=== PATIENT | female | born 1950 | race Caucasian/White ===

== ENCOUNTER 2016-07-14 14:56 | Emergency (ER) | payer OTHER ==
[2016-07-14 14:17] LABS: BASOPHIL# 0.1 X10e3 (0-0.3); BASOPHIL% 0.6 % (0-2.5); EOSINOPHIL# 0.1 X10e3 (0-0.7); EOSINOPHIL% 0.9 % (0.0-7.0); HEMATOCRIT 38.2 % (35.0-45.0); HEMOGLOBIN 12.5 gm/dL (12.0-16.0); LYMPHOCYTE# 2.9 X10e3 (1.0-3.5); LYMPHOCYTE% 31.1 % (17.0-45.0); MEAN CELL VOLUME 97.9 FL (83-96); MEAN CORPUSCULAR HEMOGLOBIN 32.1 PG (28-34); MEAN CORPUSCULAR HGB CONC 32.8 g/dL (30-36); MEAN PLATELET VOLUME 9.4 FL (6.5-11.5); MONOCYTE# 0.8 X10e3 (0-1.0); NEUTROPHIL# 5.5 X10e3 (1.5-7.1); NEUTROPHIL% 58.4 % (40-75); PLATELET COUNT 231 X10e3 (140-420); RED CELL DISTRIBUTION WIDTH 13.8 % (11.0-15.5); WHITE BLOOD COUNT 9.3 X10e3 (4.0-10.5)
[2016-07-14 14:21] LABS: INR 1.2; PROTHROMBIN TIME (PATIENT) 12.6 SECONDS (9.6-11.5)
[2016-07-14 14:23] LABS: DIFF IND NO
[2016-07-14 14:24] LABS: PARTIAL THROMBOPLASTIN TIME 28.8 SECONDS (23.5-31.3)
[2016-07-14 14:30] LABS: ALBUMIN SERUM 4.2 g/dL (3.5-5.0); BILIRUBIN, DIRECT 0.1 mg/dL (0.0-0.2); BILIRUBIN,INDIRECT 0.4 mg/dL (0.0-0.9); BILIRUBIN,TOTAL 0.5 mg/dL (0.2-2.0); BUN/CREATININE RATIO 23.75; CREATININE SERUM 0.8 mg/dL (0.6-1.4); GLOM FILT RATE Estimated 76.9 mL/min (>60); POTASSIUM 4.1 mmol/L (3.5-5.1); PROTEIN TOTAL SERUM 7.7 g/dL (6.0-8.3)
[~2016-07-14 14:56] MED LIST: ACETAMINOPHEN PO; ACETAMINOPHEN325 MG PO; ACETAMINOPHEN650 M4 PO; ALBUTEROL17 GM INH; ALTACE PO; ASPIRIN PO; ASPIRIN81 MG PO; AZOR 5-20 MG T1 EACH PO; BAYER CHEWABLE81 MG PO; BENAZEPRIL PO; CARVEDILOL6.25 MG PO; COREG PO; COREG3.125 MG PO; COREG6.25 MG PO; COUMADIN; COUMADIN PO; COUMADIN5 MG PO; COUMADIN7.5 MG PO; DYAZIDE 37.5/251 CAP PO; FLUOXETINE HCL20 M1 PO; FUROSEMIDE40 MG PO; IMDUR-ER60 M1 PO; IMDUR-ER60 M2 PO; IMDUR-ER60 M3 PO; ISOSORBIDE MONO60 M1 PO; K-DUR10 MEQ PO; KCL PO; KLOR-CON PO; LASIX PO; LASIX20 MG PO; LEVAQUIN PO; LO-DOSE ASPIRIN81 M1 PO; LOTENSIN20 MG PO; LOVENOX SQ; LOVENOX SUBQ; LOVENOX30 MG/0.3 INJ; NICODERM C1 PATCH .4; NORVASC PO; PLAVIX PO; POTASSIUM CHLO10 ME1 PO; POTASSIUM CHLO10 MEQ PO; PROTONIX20 MG PO; SIMVASTATIN20 MG PO; SKELAXIN PO; TRAMADOL HCL50 M1 PO; VITAMIN D50000 UNIT PO; ZITHROMAX PO; ZOCOR PO; ZOCOR20 MG PO; [UNRECOGNIZED DRUG - REMARK]
== END 2016-07-14 16:13 | disposition home or self-care (01) ==
LOC: CED 14:56
PROVIDERS: Emergency Medicine
DX: K92.2 Gastrointestinal hemorrhage, unspecified (principal); I25.810 Atherosclerosis of coronary artery bypass graft(s) without angina pectoris; I10 Essential (primary) hypertension; D64.9 Anemia, unspecified; J44.9 Chronic obstructive pulmonary disease, unspecified; Z95.1 Presence of aortocoronary bypass graft; F17.200 Nicotine dependence, unspecified, uncomplicated; Z88.2 Allergy status to sulfonamides; Z88.5 Allergy status to narcotic agent; Z88.1 Allergy status to other antibiotic agents
CPT/HCPCS: 36415; 80048; 80076; 85025; 85610; 85730; 99283

== ENCOUNTER 2016-10-12 10:50 | Inpatient (IN) | payer OTHER ==
[~2016-10-12] VITALS: Ht 157.5 cm; Wt 41.0 kg
--- NOTE | ~2016-10-12 | HP ---
Unit #: [id number] #: [id number] Patient: SARAH WALLIS [id number] [address] [place], [place] [address] [id number] I MR#: [id number] NAME: SARAH WALLIS ROOM: 304 Age: 66 Sex: F Admission Date: 10/12/2016 : 1950 Attending Physician: Pat Ivan M.D. Primary Care Physician: Pat Ivan M.D. HISTORY AND PHYSICAL CHIEF COMPLAINT GI bleeding. HISTORY OF PRESENT ILLNESS Ms. Sarah Wallis is a 66-year-old female with multiple medical problems, is very well known to me from office setting and from hospitalization. She was doing well until Thursday. Thursday evening she started having some abdominal cramping. On Thursday, she started bleeding. She has had this kind of episode in the past. She thought this will pass but by Thursday it was getting worse and she was feeling lightheaded. She came to ER and was admitted for further workup. The patient has seen Dr. Hernandez in the past. She has had EGD and colonoscopy done in the past. Patient is still complaining of abdominal pain, level of 6 to 7 over 10. She would like some pain medications as she is NPO. She does not complain of vomiting. Does not complain of syncopal episode. She was feeling kind of nauseous and also lightheaded. She does not complain of chest pain. No complaint of shortness of breath. No compliant of shortness of breath. No complaint of palpitations. No complaint of orthopnea or paroxysmal nocturnal dyspnea. Please note, patient does have significant cardiac disease. She has had mechanical aortic valve and is on anticoagulation therapy which is on hold at this time. PAST MEDICAL HISTORY 1. History of coronary artery disease with previous myocardial infarction, status post CABG. 2. History of mechanical aortic valve replacement in 2002. 3. Hypertension. 4. Hyperlipidemia. 5. COPD. 6. Osteoarthritis. 7. Anemia. 8. History of GI bleed in the past. 9. Reformed tobacco abuse. PAST SURGICAL HISTORY Patient has had multiple surgeries includin. CABG x3. 2. Mechanical aortic valve replacement. 3. Cardiac catheterization and PCI in 2012. 4. Colonoscopy, October 2014. 5. EGD, multiple in the past. 6. Hysterectomy. 7. Splenectomy. 8. Appendectomy. Unit #: [id number] #: [id number] Patient: SARAH WALLIS 9. Cholecystectomy. 10. Cataract extraction. ALLERGIES Sulfa, codeine, prednisone, ampicillin, meropenem, meperidine, cefuroxime. SOCIAL HISTORY Patient lives at home. She is a reformed smoker. No history of alcohol abuse or drug abuse. FAMILY HISTORY Patient's brother of sudden cardiac . She does have family history of significant cardiac disease. HOME MEDICATIONS 1. Coumadin 5 mg daily. 2. Coreg 6.25 mg twice a day. 3. Simvastatin 20 mg daily. 4. Isosorbide 60 mg daily. 5. Potassium 10 mEq daily. 6. Lasix 20 mg daily. 7. Aspirin 81 mg daily. 8. Omeprazole 40 mg before breakfast. 9. Dulcolax 100 mg daily. 10. Loratadine 10 mg daily. 11. Patanol one drop each eye daily. REVIEW OF SYSTEMS As per history of presenting illness. No history of fever, chills, or rigors. No history of chest pain. No history of shortness of breath. No history of palpitations. No history of wheezing. No history of syncopal episodes. No major skin issues. No ear, nose, throat problems. Rest is as per history of presenting illness. PHYSICAL EXAMINATION GENERAL: The patient is lying comfortably in bed, does not seem to be in any respiratory distress. VITAL SIGNS: Blood pressure is 114/59, respiratory rate 18, pulse 51, temperature 97.7, oxygen saturation is 97%. HEENT: Head is normocephalic. Eye movements are normal. NECK: Supple. CHEST: Fair air entry. No additional sounds. CARDIOVASCULAR: S1, S2 positive. Prosthetic valve click is present. ABDOMEN: Soft. There is some tenderness in the upper abdomen. No rigidity or rebound. Bowel sounds are positive. EXTREMITIES: Negative edema. CENTRAL NERVOUS SYSTEM: The patient is awake, alert, oriented x3. No focal neurological deficit. DIAGNOSTIC STUDIES LABORATORY: WBC 10.2, hemoglobin 13.2, hematocrit 40.2, and platelet count of 230,000. PT/INR is 23.9 and 2.2. Sodium 138, potassium 3.9, chloride 103, BUN 17, creatinine 0.8. Liver enzymes are stable. IMAGING: CT scan of the abdomen and pelvis was done which shows no acute abnormalities are noted, moderately severe sigmoid and descending colonic diverticulosis and moderate volume stool throughout the colon. Unit #: [id number] #: [id number] Patient: SARAH WALLIS CT scan of the head without contrast is done. Negative head CT exam. ASSESSMENT Patient is being admitted to telemetry unit with: 1. Low gastrointestinal bleed. 2. Abdominal pain. 3. Status post mechanical aortic valve replacement, Coumadin on hold due to gastrointestinal bleed. 4. Coronary artery disease, status post coronary artery bypass grafting. 5. Chronic obstructive pulmonary disease. 6. Hypertension. 7. Hyperlipidemia. 8. Reformed smoker. PLAN 1. Admit to telemetry unit. 2. Dr. Recinos has been consulted. 3. Coumadin is on hold. 4. IV Protonix is being started. 5. Dr. Hernandez has been consulted. Plan of care has been discussed with patient at length. Please refer to progress note for further orders. Dictated by Ana Tatum TD: 10/13/2016 10:26 JOB #: [id number] HISTORY AND PHYSICAL Page 1 of 1 X Pat Ivan MD X HISTORY AND PHYSICAL
--- NOTE | ~2016-10-12 | CT71 ---
[facility] A Service of [facility] RADIOLOGY TEXT RESULTS PATIENT: SARAH WALILS LOCATION: [facility] 304-01 : [birth year] UNIT #: [id number] AGE: [address]: Pat Ivan MD SEX: F ORDER DR: [id number] [facility] [address] [facility]. [place], [place] [address] [id number] MR#: [id number] Acc #: [id number] NAME: SARAH WALLIS : 1950 SEX: F STUDY DATE/TIME: 10/12/2016 13:01 UNIT: A [facility] ROOM: [facility] STUDY DESCRIPTION: CT Head Wo Contrast Attending Physician: Pat Ivan M.D. Ordering Physician: Nura Pittman D.O. Primary Care Physician: Pat Ivan M.D. MEDICAL IMAGING REPORT This report is preliminary unless electronic signature is present EXAM CT head, noncontrast, 10/12/2016 HISTORY 66-year-old female complaining of 2-day history of severe headache (11/13). Dizziness. She also notes a 1-day history of rectal bleeding. TECHNIQUE CT examination of the head was performed without IV contrast. The CT exam was performed with one or more of the following radiation dose reduction techniques: automatic exposure control, adjustment of mA and/or kV according to patient size, and iterative reconstruction. FINDINGS The examination is negative. No evidence of intracranial hemorrhage, mass, mass effect, cerebral edema, hydrocephalus or additional abnormality. No significant change since 03/23/2016. IMPRESSION Negative head CT examination. No change since 03/23/2016. Dictated by... Meet Araujo M.D. THIS IS AN ELECTRONICALLY VERIFIED REPORT Meet Araujo M.D. at 10/14/2016 8:50 AM STEPHANIEW/mariela TD: 10/13/2016 09:04 JOB #: [id number] [facility] A Service of [facility] RADIOLOGY TEXT RESULTS PATIENT: SARAH WALLIS LOCATION: [facility] 304-01 : [birth year] UNIT #: [id number] AGE: [address]: Pat Ivan MD SEX: F ORDER DR: MEDICAL IMAGING REPORT Page 1 of 1 COPY
--- NOTE | ~2016-10-12 | EKG ---
PATIENT: SARAH WALLIS UNIT #: [id number] Ventricular Rate: 58 BPM Atrial Rate: 58 BPM P-R Interval: 136 ms QRS Duration: 88 ms Q-T Interval: 438 ms QTC Calculation(Bezet): 429 ms P [place]: 79 degrees Calculated R [place]: 77 degrees Calculated T [place]: 49 degrees Diagnosis Line: Sinus bradycardia Diagnosis Line: Otherwise normal ECG Diagnosis Line: Diagnosis Line: Confirmed by FILEMON MOODY MD ([id number]) on Diagnosis Line: 10/20/2016 12:14:52 PM INTERPRETING MD: QUIN
--- NOTE | ~2016-10-12 | DS ---
Unit #: [id number] #: [id number] Patient: SARAH WALLIS [id number] [address] [address] [id number] I MR#: [id number] NAME: SARAH WALLIS ROOM: 461 Age: 66 Sex: F Admission Date: 10/12/2016 : 1950 Discharge Date: 10/21/2016 Attending Physician: Pat Ivan M.D. Primary Care Physician: Pat Ivan M.D. DISCHARGE SUMMARY FINAL DIAGNOSES 1. Acute diverticular bleed. 2. Hypertension. 3. Mechanical aortic valve replacement. 4. History of coronary artery disease, status post coronary artery bypass graft. 5. History of percutaneous coronary intervention to proximal left circumflex. 6. Anticoagulation therapy with INR of 3.1 today. 7. On stress test in 2015, ejection fraction was 76%. 8. Anemia. 9. Hypertension. 10. Hyperlipidemia. 11. Hypotension at this time. DISCHARGE MEDICATIONS Tylenol 650 q.6h p.r.n., warfarin 5 mg daily, loratadine 10 mg daily p.r.n. Please note, carvedilol has been discontinued because of hypotension and bradycardia; Colace 100 mg daily; simvastatin 20 mg daily; ProAmatine 10 mg p.o. t.i.d.; Patanol drops for allergies; aspirin 81 mg daily; omeprazole daily; potassium 10 mEq daily; isosorbide mononitrate has been discontinued at this time per Cardiology. DIAGNOSTIC STUDIES LABORATORY RESULTS: On discharge, WBC 8.8, hemoglobin 10.5, hematocrit 31.9 and platelet count of 188. PT/INR is 33.3 and 3.1. Sodium 139, potassium 4.0, chloride 104, BUN 19, creatinine 0.8, calcium 8.5, troponin 0.03. IMAGING STUDIES: Radiological studies done during hospitalization; 1. CT scan of the abdomen and pelvis, which was done on admission showed no acute abnormalities. Moderate to severe sigmoid and descending colonic diverticulosis were seen. The patient has had splenectomy, cholecystectomy and hysterectomy. There is a stable benign 1.4 cm left adrenal nodule, unchanged from 08/2014, pulmonary emphysema was seen. 2. CT scan of the head without contrast was done on admission, which shows negative head CT scan. PROCEDURE PERFORMED DURING HOSPITALIZATION Colonoscopy to the cecum. This was done because of significant lower GI bleed and anemia secondary to acute GI bleed. The patient had colonoscopy done, which shows fresh blood seen some in entire colon. After extensive lavaging, no fresh bleeding was seen. No source of bleeding was Unit #: [id number] #: [id number] Patient: SARAH WALLIS identified. Moderate diverticulosis involving sigmoid colon. Small internal hemorrhoids were seen. This procedure was performed by Dr. Hernandez on 10/15/2016. CONSULTATION DURING HOSPITALIZATION 1. Dr. Recinos from Cardiology Services. 2. Dr. Hernandez from GI Services. HOSPITAL COURSE Ms. Saturnino Denise is a 66-year-old female who is very well known to me from multiple admissions, came with a GI bleed. The patient was admitted to telemetry unit and continued to observe closely. Dr. Hernandez was consulted and the patient had colonoscopy done, which is as above. Coumadin was held on admission and started on heparin drip as per Cardiology Services. The patient is doing well. After a few days, she did go to hypertension, was transferred to ICU and was on pressors for some time. The patient is being started on ProAmatine for hypertension. She is feeling much better and would like to go home. She is being discharged home at this time. EXAMINATION ON DISCHARGE VITAL SIGNS: Blood pressure is 147/49, respiratory rate 16, pulse is 52, temperature 97.9, oxygen saturation is 98%. HEENT: Head is normocephalic. CHEST: Fair air entry. CVS: Mechanical valve, click is heard. ABDOMEN: Soft. EXTREMITIES: Negative edema. DISCHARGE INSTRUCTIONS 1. The patient is being discharged home in stable condition. 2. Follow up primary care provider in 1 week. 3. CBC and BMP to be done in 1 week. 4. Follow up with Dr. Recinos on 12/04/2016 at 2:00 p.m. 5. PT/INR to be repeated in 2 to 3 days. 6. Follow up with Dr. Hernandez in 2 to 3 weeks. 7. Plan of care has been discussed with the patient. Dictated by... Ana Tatum/palomo TD: 10/25/2016 03:28 JOB #: [id number] DISCHARGE SUMMARY Page 1 of 1 X Pat Ivan MD DISCHARGE SUMMARY
--- NOTE | ~2016-10-12 | A ---
[facility] Nutrition Therapy DATE: 10/13/16 Patient: SARAH WALLIS Physician: BRIANA Address: [address] [place] [address] Room/Bed: [address] [place] [address], Zip: [place] [address] Admit Date: 10/12/16 Date of : [birth year] Height: 5 2 Weight: 92 41.9 NUTRITIONAL ASSESSMENT: REASON: LOW BMI 66 yo female admitted for GI bleed, abdominal pain PMH: CAD, COPD, [place], CABG, HTN, HLD, mechanical aortic valve placement, GI bleed, osteoarthritis, anemia Anthropometrics: Ht: 62" Wt: 41.9 kg BMI: 16.9 IBW: 50 kg, 84% IBW Labs: Nutritional labs WNL Meds: Protonix, lipitor, colace, furosemide, NaCl I/O & Bowel function: 177/, last BM 10/12, loose stool noted Skin Integrity: Thin skin noted by MD 4 lap sites- abdomen Edema: None noted Estimated Nutrition Needs: Increased due to low body weight Diet: Consistent carbohydrate diet (in Predictify)- RN and pt report that she is NPO for possible scope Assessment: Chart reviewed, events noted. 66 yo female admitted for GI bleed and abdominal pain. Pt has been seen for low BMI previously by RDs at [facility], and it appears that the pt has actually gain weight recently, as she weighed 88# in March 2016. RD spoke with the pt at bedside. Pt reports that she has been increasing her intake and weighed 94# prior to GI bleed/ blood in stool. Pt currently weighs ~92#, indicating 2# weight loss. Pt also notes abdominal pain after eating. Of note, the pt is ordered a consistent carbohydrate diet in Predict[employer]; however, pt and RN report that she is currently NPO for possible scope. RD unsure why the pt was ordered a consistent carboydrate diet, as she has no h/o DM and blood glucose levels are WNL. Pt states that she is "starving" at this time. Pt is agreeable to Ensure supplements once her diet advances, as she consumes Ensure TID at home when she can afford it. RD discussed other less expensive oral nutrition supplements, ways to increase protein-calorie intake, and provided the pt with Ensure coupons. Pt voiced understanding and was happy to receive coupons. Dx: Inadequate protein-energy intake RT clinical condition AEB NPO for possible scope. [facility] Nutrition Therapy DATE: 10/13/16 Patient: SARAH WALLIS Physician: BRIANA Address: [address] [place] [address] Room/Bed: [address], Zip: [place] [address] Admit Date: 10/12/16 Date of : [birth year] Height: 5 2 Weight: 92 41.9 2) Underweight RT clinical condition, GI bleed AEB AEB BMI 16.9, 84% IBW, 2# weight loss prior to admission. Intervention: 1. Advance to regular diet once medically feasible 2. Ensure TID once diet advances Monitoring, Evaluation and Goals: 1. Oral intake; tolerate >50-75% of meals and supplements 2. Weight; promote gradual weight gain towards healthy BMI range, prevent weight loss 3. GI; promote regular GI function Recommendations: 1. Once medically feasible pending results of possible scope, recommend advancing the pt to a regular diet + 6 small meals as tolerated. 2. Ensure TID (no flavor preference) for supplemental nutrition once the pt's diet advances. 3. Obtain accurate daily weights for monitoring purposes. Pt is at mild-moderate nutritional risk. RD will follow hospital course per protocol. Respectfully, BALDOMERO RODGERS RD, LD Food and Nutritional Services [facility] cc: client file
--- NOTE | ~2016-10-12 | OR ---
Unit #: [id number] #: [id number] Patient: SARAH WALLIS [id number] [address] [address] [id number] I MR#: [id number] NAME: SARAH WALLIS ROOM: [facility] Date of Procedure: 10/15/2016 Admission Date: 10/12/2016 Surgeon: Adalberto Hernandez M.D. : 1950 Attending Physician: Pat Ivan M.D. Primary Care Physician: Pat Ivan M.D. OPERATIVE REPORT PROCEDURE PERFORMED Colonoscopy to cecum. INDICATIONS FOR PROCEDURE The patient with significant lower GI bleeding, anemia secondary to acute blood loss, undergoing evaluation with colonoscopy. MEDICATIONS Monitored anesthesia. POSTOPERATIVE FINDINGS 1. There was some fresh blood seen in the entire colon. After extensive lavaging, no fresh bleeding was seen. No source of bleeding was identified. 2. Moderate diverticulosis involving sigmoid colon. 3. Small internal hemorrhoids. PLAN Continue to watch for any further bleeding. DESCRIPTION OF PROCEDURE The patient was explained of the procedure, risks, and benefits along with risks and benefits of anesthesia. She was brought to the endoscopy room. Propofol anesthesia was given. Rectal exam was done, which was normal. Colonoscope was lubricated, passed up the rectum, advanced under direct vision all the way to the cecum. Cecum was identified by ileocecal valve and appendiceal orifice. Extensive lavaging was done. No fresh bleeding was seen in the entire colon. Diverticulosis noted in the sigmoid colon. I retroflexed in the rectum, small hemorrhoids seen. The scope was pulled out. She tolerated it well. No major complications were seen. Dictated by... Ana [place]/palomo TD: 10/16/2016 06:15 JOB #: [id number] CC: Adalberto Hernandez M.D. Unit #: [id number] #: [id number] Patient: SARAH WALLIS OPERATIVE REPORT Page 1 of 1 X Adalberto Hernandez MD X PROCEDURE OPERATIVE NOTE
--- NOTE | ~2016-10-12 | FU ---
[facility] Nutrition Therapy DATE: 10/16/16 Patient: SARAH WALLIS Physician: BRIANA Address: [address] [place] [address] TRAIL Room/Bed: [address] [place] [address], Zip: [place] [address] Admit Date: 10/12/16 Date of : [birth year] Height: 5 2 Weight: 88 40.3 NUTRITION MONITORING/FOLLOW-UP: Reason: Follow up Anthropometrics: Ht: 5'2" Wt: 41.9 kg BMI: 16.9 Labs: BUN 8 Alb 3.3 Meds: Coumadin, protonix, lipitor, colace, furosemide, NaCl I&O's: 1015/309, last BM 10/15 Skin: No changes noted, no edema Diet: Regular Assessment: Chart reviewed, events noted. Pt had colonoscopy yesterday with diverticular bleed and sigmoid diverticulosis noted. Pt's diet was advanced to regular this morning. RD spoke with the pt at bedside. Pt has a great appetite, reported consuming 90-100% of her breakfast and 100% of her Ensure Clear. RD discussed lunch options with the pt, and encouraged balanced intake with fiber. Pt requested regular Ensure instead of Ensure clear since her diet advanced. RD will order. Dx: Inadequate protein-energy intake RT clinical condition AEB NPO for possible scope- RESOLVED New Dx: Underweight RT PMH, Dx AEB BMI 16.9, 84% IBW. Intervention: 1. Regular diet 2. Ensure TID Monitoring, Evaluation and Goals: 1. Oral intake; tolerate >50-75% of meals and supplements- MET/ IN PROGRESS 2. Weight; promote gradual weight gain towards healthy BMI range, prevent weight loss-NOT MET/ IN PROGRESS 3. GI; promote regular GI function- IN PROGRESS CONTINUE TO MONITOR ABOVE GOALS Recommendations: 1. Continue regular diet as tolerated. Encourage adequate fiber intake. [facility] Nutrition Therapy DATE: 10/16/16 Patient: SARAH WALLIS Physician: BRIANA Address: [address] [place] [address] Room/Bed: [address] [place] [address], Zip: [place] [address] Admit Date: 10/12/16 Date of : [birth year] Height: 5 2 Weight: 88 40.3 2. Ensure TID for supplemental nutrition. Pt has no flavor preference. Status: Pt is at mild nutritional risk. Respectfully, BALDOMERO RODGERS RD, LD Food and Nutritional Services [facility] cc: client file
--- NOTE | ~2016-10-12 | CO ---
Unit #: [id number] #: [id number] Patient: SARAH WALLIS [id number] [address] [address] [id number] I MR#: [id number] NAME: SARAH WALLIS ROOM: 304 Age: 66 Sex: F Admission Date: 10/12/2016 : 1950 Attending Physician: Pat Ivan M.D. Primary Care Physician: Pat Ivan M.D. Consultation Date: 10/13/2016 CONSULTATION REPORT REASON FOR CONSULTATION GI bleeding. HISTORY OF PRESENTING ILLNESS Ms. Wallis is a 66-year-old female known to me from previous evaluations. She was admitted yesterday with complaints of lower GI bleeding. She says she has one large red versus burgundy-colored stool. She also has been having some lower abdominal pain during the same time. Denies any fever. Denies any chills. Denies any nausea, vomiting, or hematemesis. PAST MEDICAL HISTORY Significant for mechanical aortic valve replacement, on chronic Coumadin therapy, INR of 2.2 today. She had an upper endoscopy done in 2015, which shows hiatal hernia otherwise normal. She had a colonoscopy in 2014, which shows extensive diverticulosis otherwise normal. SOCIAL HISTORY Nonsmoker, nonalcoholic. FAMILY HISTORY Noncontributory. ALLERGIES To sulfa, codeine, prednisone, ampicillin, meropenem, meperidine, and cefuroxime. MEDICATIONS Reviewed and includes Coumadin. REVIEW OF SYSTEMS Complete 10-point review of systems was done, which is unremarkable other than as mentioned above. PHYSICAL EXAMINATION VITAL SIGNS: Stable. Afebrile. GENERAL: No acute distress. HEENT: Pupils equal and reactive. Sclerae anicteric. Oral mucosa moist. NECK: No JVD. No lymphadenopathy. CHEST: Clear to auscultation bilaterally. CARDIOVASCULAR: Regular rate and rhythm. Prosthetic valve click. ABDOMEN: Mild distention and tenderness in the lower abdomen. No organomegaly or ascites. EXTREMITIES: Without clubbing, cyanosis, or edema. Unit #: [id number] #: [id number] Patient: SARAH WALLIS NEUROLOGIC: Intact. SKIN: Warm and dry. DIAGNOSTIC STUDIES LABORATORY RESULTS: Hemoglobin of 13.2, platelet count normal. PT/INR 23.9 and 2.2. Chemistries are unremarkable. IMAGING STUDIES: CT scan shows no acute disease, [id number] diverticulosis noted. No evidence of any diverticulitis was seen. ASSESSMENT AND PLAN 1. The patient with possible lower gastrointestinal bleeding. So far, hemoglobin seems to be stable. I will start her on bowel prep for potential need for colonoscopy. We will wait until the INR is corrected unless she becomes unstable, in which case, we have to do it urgently. We will keep an eye on H and H and transfuse if needed. So far, her hemoglobin seems to be stable. 2. Chronic anticoagulation therapeutic on INR. 3. Coronary artery disease, congestive heart failure, status post aortic valve replacement. Thank you, Dr. Ivan for this interesting consult. We will follow along. Dictated by... Ana [place]/palomo TD: 10/13/2016 19:13 JOB #: [id number] CONSULTATION REPORT Page 1 of 1 X Adalberto Hernandez MD X CONSULTATION REPORT
--- NOTE | ~2016-10-12 | CT2 ---
[facility] A Service of [facility] RADIOLOGY TEXT RESULTS PATIENT: SARAH WALLIS LOCATION: C3A 304-01 : 49 UNIT #: [id number] AGE: [address]: Pat Ivan MD SEX: F ORDER DR: [id number] [facility] [address] [place], [place] [address] [id number] MR#: [id number] Acc #: [id number] NAME: SARAH WALLIS : 1950 SEX: F STUDY DATE/TIME: 10/12/2016 13:03 UNIT: C3A PCU ROOM: 304 STUDY DESCRIPTION: CT Abd and Pelv W Cont Attending Physician: Pat Ivan M.D. Ordering Physician: Nura Pittman D.O. Primary Care Physician: Pat Ivna M.D. MEDICAL IMAGING REPORT This report is preliminary unless electronic signature is present EXAM CT abdomen and pelvis with contrast, 10/12/2016 HISTORY 66-year-old female in the ED complaining of 2-day history of severe headache. She also notes rectal bleeding beginning yesterday. TECHNIQUE CT examination of the abdomen and pelvis was performed with IV contrast. GI contrast was not ordered, AND this limits evaluation of the GI tract. This CT exam was performed with one or more of the following radiation dose reduction techniques: automatic exposure control, adjustment of mA and/or kV according to patient size, and iterative reconstruction. FINDINGS ABDOMEN: The spleen is surgically absent. Cholecystectomy. No bile duct dilatation. The liver and pancreas are unremarkable. Both kidneys are negative with no evidence of urinary obstruction. 1.4 cm left adrenal nodule is unchanged since 08/17/2014. Normal-caliber abdominal aorta. Moderately severe sigmoid and lower sigmoid colonic diverticulosis. Moderately large volume stool scattered throughout the colon. There is no visible evidence of acute colitis, bowel obstruction or GI tract mass, but GI tract assessment is limited as noted above. No etiology for the patient's rectal bleeding is identified. Followup colonoscopy recommended. PELVIS: Hysterectomy. Bladder and rectum are within normal limits. No inguinal hernia. Limited lung base images show evidence of pulmonary emphysema. IMPRESSION 1. No acute abnormality within the abdomen or pelvis. No etiology for STS. [facility] A Service of [facility] RADIOLOGY TEXT RESULTS PATIENT: SARAH WALLIS LOCATION: C3A 304-01 : [birth year] UNIT #: [id number] AGE: [address]: Pat Ivan MD SEX: F ORDER DR: the patient's reported rectal bleeding is identified. This examination was performed as ordered without GI contrast, and GI tract assessment is therefore limited for assessment of GI bleeding. Followup colonoscopy recommended. 2. Moderately severe sigmoid and descending colonic diverticulosis. Moderate volume stool throughout the colon. 3. Splenectomy, cholecystectomy and hysterectomy. 4. Stable benign 1.4 cm left adrenal nodule, unchanged since 08/17/2014. 5. Pulmonary emphysema visible at the lung bases. Dictated by... Meet Araujo M.D. THIS IS AN ELECTRONICALLY VERIFIED REPORT Meet Araujo M.D. at 10/14/2016 8:50 AM Sivan TD: 10/13/2016 09:02 JOB #: [id number] MEDICAL IMAGING REPORT Page 1 of 1 COPY
--- NOTE | ~2016-10-12 | CO ---
Unit #: [id number] #: [id number] Patient: SARAH WALLIS [id number] [facility] [address]. [place], [place] [address] [id number] MR#: [id number] NAME: SARAH WALLIS ROOM: 304 Age: 66 Sex: F Admission Date: 10/12/2016 : 1950 Attending Physician: Pat Ivan M.D. Primary Care Physician: Pat Ivan M.D. Consultation Date: 10/13/2016 CONSULTATION REPORT REASON FOR CONSULTATION Cardiovascular management and anticoagulation. HISTORY OF PRESENT ILLNESS This is a 66-year-old white female, previously known to Dr. Recinos, with a past medical history of coronary artery disease with myocardial infarction, status post coronary artery bypass grafting x3 vessels as well as mechanical aortic valve replacement in 2002. The patient had a cardiac catheterization in 09/2012, which required stent placement in the proximal left circumflex. There was an unsuccessful attempt to dilate the PLV of the right coronary artery. Lexiscan Cardiolite stress test was later completed in 08/2015, which revealed a possible small area of ischemia in the inferolateral wall. Ejection fraction 78%. No repeat testing was completed according to documentation. Additional past medical history includes hypertension, hyperlipidemia, COPD, osteoarthritis, and anemia. The patient was previously seen in the [facility] in 03/2016 for right upper quadrant abdominal pain and epigastric pain with evidence of acute cholecystitis. Cardiology was consulted for preoperative clearance. The patient's Coumadin was held for laparoscopic cholecystectomy and was subsequent restarted after surgery. She presented to the emergency department yesterday with complaints of rectal bleeding for the past one day. She has also had abdominal cramping. There have been no episodes of syncope but she has been lightheaded. There are no reports of chest pain, shortness of breath, or palpitations. In the emergency department, her temperature was 98.6, pulse 57, respirations 18, blood pressure 130/68, and O2 saturation 98% on room air. She was started on normal saline and given IV morphine and Zofran. Laboratory studies revealed hemoglobin of 13.2 with hematocrit of 40.2, platelets were normal at 230. Renal function and electrolytes were normal. INR was stable at 2.[address] of the abdomen and pelvis with contrast on 10/12/2016 revealed no acute abnormality. She did have moderate severe sigmoid and descending colonic diverticulosis as well as moderate volume stool throughout the colon. She was admitted for rectal bleeding and abdominal pain. Coumadin was placed on hold and Cardiology was consulted. PAST MEDICAL HISTORY 1. Coronary artery disease with history of myocardial infarction, status post coronary artery bypass grafting x3 and mechanical aortic valve replacement in 2002. 2. Last cardiac catheterization on 09/29/2012 revealed left main normal. First marginal branch of left circumflex 50% in origin. Distal vessel Unit #: [id number] #: [id number] Patient: SARAH WALLIS fills by competitive flow from [place] coronary artery injection and graft injection. Between the first and second marginal branches, there was an 80% stenosis. Saphenous vein graft to the first marginal branch of left circumflex widely patent. Distal to the first marginal branch. There was a concentric 80% stenosis. Second and third marginal branches normal. LAD normal, but with intramyocardial bridging without evidence of significant stenosis. INFANTE to second diagonal, patent. Saphenous vein graft to first diagonal, patent. Right coronary artery occluded the junction of proximal third and distal two-thirds. Saphenous vein graft to right coronary artery patent. PDA branch normal. PLV 80% to 90% distal graft. Status post PCI and drug-eluting stent in the proximal left circumflex. Unsuccessful angioplasty of the posterior left ventricular branch of the right coronary artery on 09/30/2012. 3. Lexiscan Cardiolite stress test on 08/07/2015 revealed possible area of ischemia in inferolateral wall. Ejection fraction 78%. Manage medically. 4. 2D echocardiogram on 08/07/2015 revealed an ejection fraction of 30%. Mildly dilated left atrium. Mild mitral regurgitation. No evidence of pericardial effusion. Moderate LVH. 5. Previous 2D echocardiogram on 10/2012 revealed an ejection fraction of 50% to 55%. 6. Hypertension. 7. Hyperlipidemia. 8. COPD. 9. Anemia. 10. Osteoarthritis. 11. History of possible GI bleed with acute colitis in 01/2016. 12. Reformed tobacco abuse. PAST SURGICAL HISTORY 1. Coronary artery bypass grafting. 2. Cardiac catheterization with PCI and stent as noted above. 3. Colonoscopy in 10/2014 with colon polyps, status post snare polypectomy. 4. EGD on 11/29/2015 revealed small hiatal hernia. 5. Hysterectomy. 6. Splenectomy. 7. Appendectomy. 8. Cataract extraction. HOME MEDICATIONS Coumadin 5 mg p.o. daily, carvedilol 6.25 mg p.o. b.i.d., simvastatin 20 mg p.o. daily, isosorbide mononitrate 60 mg p.o. daily, potassium chloride 10 mEq p.o. daily, Lasix 20 mg p.o. daily, aspirin 81 mg p.o. every other day, omeprazole 40 mg p.o. before breakfast, docusate sodium 100 mg p.o. daily, loratadine 10 mg p.o. daily, Patanol 1 drop OU daily. ALLERGIES Sulfa, codeine, prednisone, ampicillin, cefuroxime, and meperidine. SOCIAL HISTORY The patient is a reformed smoker. There are no reports of alcohol or illicit drug use. FAMILY HISTORY Significant for heart disease. Her brother of sudden cardiac . REVIEW OF SYSTEMS Unit #: [id number] #: [id number] Patient: SARAH WALLIS Ten-point review of systems negative except for details noted above in HPI. PHYSICAL EXAMINATION VITAL SIGNS: Temperature 97.9, pulse 51, and blood pressure 100/58. CONSTITUTIONAL: This is a 66-year-old female, in no acute distress. SKIN: Warm and dry. NECK: Supple. No jugular vein distention. No hepatojugular reflux. Normal carotid upstrokes. No carotid bruits auscultated. HEART: S1 and S2. Regular rate and rhythm. No murmurs, rubs, or gallops. LUNGS: Bilateral breath sounds have good air entry throughout all lung kaiser. Respirations are even and nonlabored. No rales, rhonchi, or wheezes. ABDOMEN: Soft, nontender, and nondistended. Positive bowel sounds auscultated x4 quadrants. No ascites noted. EXTREMITIES: Bilateral lower extremities have no pretibial pitting edema. DP and PT pulses are 2+. Capillary refill is less than 2 seconds. DIAGNOSTIC STUDIES LABORATORY RESULTS: White blood cell count 10.2, hemoglobin 12.2, hematocrit 36.7, and platelets 230. Sodium 139, potassium 4.3, chloride 107, CO2 of 29, BUN 14, creatinine 0.6, glucose 88. AST 30, ALT 19, alkaline phos 86. INR 2.2 and 2.0. IMAGING STUDIES: CT of the abdomen and pelvis with contrast reveals no acute abnormality. Moderately severe sigmoid and descending colonic diverticulosis. Moderate volume stool throughout the colon. Splenectomy, cholecystectomy, and hysterectomy. Stable benign 1.4 cm left adrenal nodule unchanged from previous study on 08/17/2014. Pulmonary emphysema visible at the lung bases. CT of the head without contrast reveals no acute findings. CARDIOVASCULAR STUDIES: EKG pending. IMPRESSION 1. Upper gastrointestinal bleed questionable due to peptic ulcer disease. 2. Abdominal pain. 3. Valvular heart disease, status post mechanical aortic valve replacement and three-vessel coronary artery bypass grafting in 2002. 4. Status post percutaneous coronary intervention and stent in the proximal left circumflex in 2012. 5. Cardiomyopathy with an ejection fraction of 30% on 2D echocardiogram, 08/2015. 6. Chronic systolic congestive heart failure. 7. Chronic obstructive pulmonary disease. 8. Hypertension. 9. Hyperlipidemia. 10. History of reported gastrointestinal bleed and colitis in 2015. PLAN 1. The patient presented to the hospital with complaints of rectal bleeding. She was admitted for further evaluation and Cardiology was consulted. 2. The patient's Coumadin has been placed on hold for the time being. 3. She has been started on Protonix. 4. Dr. Hernandez of Gastroenterology has been consulted. 5. There are no complaints of chest pain or evidence of congestive heart Unit #: [id number] #: [id number] Patient: SARAH WALLIS. 6. The patient had an echocardiogram in 2015, which revealed an ejection fraction of 30%. She would benefit from a repeat study to reassess LV function. 7. Once she is evaluated by Gastroenterology, she should be considered for IV heparin due to mechanical aortic valve prosthesis. Dictated by... Angelita Florentino APRN for [facility] TD: 10/14/2016 05:34 JOB #: [id number] CONSULTATION REPORT Page 1 of 1 X X CONSULTATION REPORT
[2016-10-12 11:51] LABS: BASOPHIL# 0.1 X10e3 (0-0.3); BASOPHIL% 1.4 % (0-2.5); EOSINOPHIL% 0.4 % (0.0-7.0); HEMATOCRIT 40.2 % (35.0-45.0); HEMOGLOBIN 13.2 gm/dL (12.0-16.0); MEAN CELL VOLUME 100.1 FL (83-96); MEAN PLATELET VOLUME 8.6 FL (6.5-11.5); MONOCYTE# 1.2 X10e3 (0-1.0); MONOCYTE% 11.4 % (3.0-12.0); NEUTROPHIL# 6.8 X10e3 (1.5-7.1); NEUTROPHIL% 66.8 % (40-75); PLATELET COUNT 230 X10e3 (140-420); RED BLOOD COUNT 4.01 X10e (3.90-5.30); RED CELL DISTRIBUTION WIDTH 13.2 % (11.0-15.5); WHITE BLOOD COUNT 10.2 X10e3 (4.0-10.5)
[2016-10-12 11:53] LABS: DIFF IND NO
[2016-10-12 12:04] LABS: INR 2.2; PARTIAL THROMBOPLASTIN TIME 36.6 SECONDS (23.5-31.3)
[2016-10-12 12:05] LABS: PROTHROMBIN TIME (PATIENT) 23.9 SECONDS (10.0-11.7)
[2016-10-12 12:13] LABS: ALBUMIN SERUM 3.8 g/dL (3.5-5.0); BILIRUBIN, DIRECT 0.1 mg/dL (0.0-0.2); BILIRUBIN,INDIRECT 0.6 mg/dL (0.0-0.9); BILIRUBIN,TOTAL 0.7 mg/dL (0.2-2.0); BUN/CREATININE RATIO 21.25; CALCIUM SERUM 8.6 mg/dL (8.4-10.2); CREATININE SERUM 0.8 mg/dL (0.6-1.4); GLOM FILT RATE Estimated 76.4 mL/min (>60); POTASSIUM 3.9 mmol/L (3.5-5.1); PROTEIN TOTAL SERUM 7.1 g/dL (6.0-8.3)
[2016-10-12] MEDS ORDERED: CARVEDILOL6.25 MG PO (13:50)
[2016-10-12] MEDS ORDERED: SIMVASTATIN20 MG PO (13:50)
[2016-10-12] MEDS ORDERED: COUMADIN5 MG PO (13:50)
[2016-10-12] MEDS ORDERED: POTASSIUM CHLO10 MEQ PO (13:51)
[2016-10-12] MEDS ORDERED: ISOSORBIDE MONO60 M1 PO (13:51)
[2016-10-12] MEDS ORDERED: LASIX20 MG PO (13:53)
[2016-10-12] MEDS ORDERED: BAYER CHEWABLE81 MG PO (13:54)
[2016-10-12] MEDS ORDERED: OMEPRAZOLE40 M1 PO (13:54)
[2016-10-12] MEDS ORDERED: LORATADINE10 M1 PO (13:55)
[2016-10-12] MEDS ORDERED: DOC-Q-LACE100 MG PO (13:55)
[2016-10-12] MEDS ORDERED: PATANOL5 ML OU (13:56)
[2016-10-12 17:39] LABS: HEMATOCRIT 41.3 % (35.0-45.0); HEMOGLOBIN 13.3 gm/dL (12.0-16.0)
[2016-10-13 02:08] LABS: HEMATOCRIT 35.3 % (35.0-45.0); HEMOGLOBIN 11.5 gm/dL (12.0-16.0)
[2016-10-13 06:01] LABS: PARTIAL THROMBOPLASTIN TIME 36.4 SECONDS (23.5-31.3); PROTHROMBIN TIME (PATIENT) 22.2 SECONDS (10.0-11.7)
[2016-10-13 11:17] LABS: HEMATOCRIT 36.7 % (35.0-45.0); HEMOGLOBIN 12.2 gm/dL (12.0-16.0)
[2016-10-13 12:08] LABS: BUN/CREATININE RATIO 23.33; CALCIUM SERUM 8.4 mg/dL (8.4-10.2); CREATININE SERUM 0.6 mg/dL (0.6-1.4); GLOM FILT RATE Estimated 94.3 mL/min (>60); POTASSIUM 4.3 mmol/L (3.5-5.1)
[2016-10-13 17:43] LABS: HEMATOCRIT 39.2 % (35.0-45.0); HEMOGLOBIN 12.9 gm/dL (12.0-16.0)
[2016-10-14 06:04] LABS: HEMOGLOBIN 12.2 gm/dL (12.0-16.0); MEAN CORPUSCULAR HEMOGLOBIN 32.7 PG (28-34); MEAN PLATELET VOLUME 8.8 FL (6.5-11.5); RED BLOOD COUNT 3.74 X10e (3.90-5.30); RED CELL DISTRIBUTION WIDTH 12.8 % (11.0-15.5); WHITE BLOOD COUNT 12.5 X10e3 (4.0-10.5)
[2016-10-14 06:31] LABS: INR 1.3; PARTIAL THROMBOPLASTIN TIME 32.2 SECONDS (23.5-31.3); PROTHROMBIN TIME (PATIENT) 14.5 SECONDS (10.0-11.7)
[2016-10-14 06:50] LABS: ALBUMIN SERUM 3.3 g/dL (3.5-5.0); BILIRUBIN,TOTAL 1.1 mg/dL (0.2-2.0); BUN/CREATININE RATIO 27.14; CALCIUM SERUM 8.5 mg/dL (8.4-10.2); CREATININE SERUM 0.7 mg/dL (0.6-1.4); GLOM FILT RATE Estimated 89.7 mL/min (>60); POTASSIUM 3.7 mmol/L (3.5-5.1); PROTEIN TOTAL SERUM 6.2 g/dL (6.0-8.3)
[2016-10-15 00:40] LABS: HEMATOCRIT 33.5 % (35.0-45.0); HEMOGLOBIN 11.2 gm/dL (12.0-16.0); MEAN CELL VOLUME 98.3 FL (83-96); MEAN CORPUSCULAR HEMOGLOBIN 32.9 PG (28-34); MEAN CORPUSCULAR HGB CONC 33.4 g/dL (30-36); RED BLOOD COUNT 3.41 X10e (3.90-5.30); RED CELL DISTRIBUTION WIDTH 12.7 % (11.0-15.5); WHITE BLOOD COUNT 9.2 X10e3 (4.0-10.5)
[2016-10-15 01:01] LABS: INR 1.3; PARTIAL THROMBOPLASTIN TIME 59.1 SECONDS (23.5-31.3); PROTHROMBIN TIME (PATIENT) 13.7 SECONDS (10.0-11.7)
[2016-10-15 01:26] LABS: ALBUMIN SERUM 3.5 g/dL (3.5-5.0); BILIRUBIN,TOTAL 1.3 mg/dL (0.2-2.0); CALCIUM SERUM 8.3 mg/dL (8.4-10.2); CREATININE SERUM 0.7 mg/dL (0.6-1.4); GLOM FILT RATE Estimated 89.7 mL/min (>60); MAGNESIUM 2.4 mg/dL (1.6-3.0); POTASSIUM 3.6 mmol/L (3.5-5.1); PROTEIN TOTAL SERUM 5.9 g/dL (6.0-8.3)
[2016-10-16 06:10] LABS: HEMATOCRIT 32.4 % (35.0-45.0); HEMOGLOBIN 10.8 gm/dL (12.0-16.0); MEAN CELL VOLUME 99.9 FL (83-96); MEAN CORPUSCULAR HEMOGLOBIN 33.4 PG (28-34); MEAN CORPUSCULAR HGB CONC 33.5 g/dL (30-36); MEAN PLATELET VOLUME 9.7 FL (6.5-11.5); RED BLOOD COUNT 3.24 X10e (3.90-5.30); RED CELL DISTRIBUTION WIDTH 12.7 % (11.0-15.5); WHITE BLOOD COUNT 7.6 X10e3 (4.0-10.5)
[2016-10-16 06:31] LABS: INR 1.2; PARTIAL THROMBOPLASTIN TIME 97.5 SECONDS (23.5-31.3); PROTHROMBIN TIME (PATIENT) 12.9 SECONDS (10.0-11.7)
[2016-10-16 06:46] LABS: ALBUMIN SERUM 3.3 g/dL (3.5-5.0); BILIRUBIN,TOTAL 0.5 mg/dL (0.2-2.0); CALCIUM SERUM 8.5 mg/dL (8.4-10.2); CREATININE SERUM 0.8 mg/dL (0.6-1.4); GLOM FILT RATE Estimated 76.4 mL/min (>60); POTASSIUM 3.7 mmol/L (3.5-5.1)
[2016-10-17 06:10] LABS: INR 1.1; PARTIAL THROMBOPLASTIN TIME 61.5 SECONDS (23.5-31.3)
[2016-10-17 06:15] LABS: HEMATOCRIT 31.7 % (35.0-45.0); HEMOGLOBIN 10.7 gm/dL (12.0-16.0); MEAN CELL VOLUME 98.8 FL (83-96); MEAN CORPUSCULAR HEMOGLOBIN 33.2 PG (28-34); MEAN CORPUSCULAR HGB CONC 33.6 g/dL (30-36); MEAN PLATELET VOLUME 9.9 FL (6.5-11.5); RED BLOOD COUNT 3.21 X10e (3.90-5.30); RED CELL DISTRIBUTION WIDTH 12.8 % (11.0-15.5); WHITE BLOOD COUNT 7.8 X10e3 (4.0-10.5)
[2016-10-17 08:25] LABS: BUN/CREATININE RATIO 16.25; CALCIUM SERUM 8.5 mg/dL (8.4-10.2); CREATININE SERUM 0.8 mg/dL (0.6-1.4); GLOM FILT RATE Estimated 76.4 mL/min (>60); MAGNESIUM 1.9 mg/dL (1.6-3.0)
[2016-10-18 04:48] LABS: HEMATOCRIT 30.4 % (35.0-45.0); MEAN CELL VOLUME 99.6 FL (83-96); MEAN CORPUSCULAR HEMOGLOBIN 32.8 PG (28-34); RED BLOOD COUNT 3.06 X10e (3.90-5.30); RED CELL DISTRIBUTION WIDTH 12.7 % (11.0-15.5); WHITE BLOOD COUNT 8.7 X10e3 (4.0-10.5)
[2016-10-18 05:13] LABS: INR 1.1; PROTHROMBIN TIME (PATIENT) 12.4 SECONDS (10.0-11.7)
[2016-10-18 05:15] LABS: BUN/CREATININE RATIO 26.25; CALCIUM SERUM 8.2 mg/dL (8.4-10.2); CREATININE SERUM 0.8 mg/dL (0.6-1.4); GLOM FILT RATE Estimated 76.4 mL/min (>60); POTASSIUM 3.9 mmol/L (3.5-5.1)
[2016-10-19 05:52] LABS: BASOPHIL# 0.1 X10e3 (0-0.3); BASOPHIL% 0.6 % (0-2.5); EOSINOPHIL# 0.2 X10e3 (0-0.7); HEMATOCRIT 31.9 % (35.0-45.0); HEMOGLOBIN 10.5 gm/dL (12.0-16.0); LYMPHOCYTE# 4.1 X10e3 (1.0-3.5); LYMPHOCYTE% 36.3 % (17.0-45.0); MEAN CELL VOLUME 100.1 FL (83-96); MEAN CORPUSCULAR HEMOGLOBIN 32.8 PG (28-34); MEAN CORPUSCULAR HGB CONC 32.8 g/dL (30-36); MEAN PLATELET VOLUME 10.3 FL (6.5-11.5); MONOCYTE# 1.4 X10e3 (0-1.0); MONOCYTE% 12.1 % (3.0-12.0); NEUTROPHIL# 5.6 X10e3 (1.5-7.1); PLATELET COUNT 176 X10e3 (140-420); RED BLOOD COUNT 3.19 X10e (3.90-5.30); RED CELL DISTRIBUTION WIDTH 12.9 % (11.0-15.5); WHITE BLOOD COUNT 11.4 X10e3 (4.0-10.5)
[2016-10-19 06:04] LABS: BUN/CREATININE RATIO 23.75; CALCIUM SERUM 8.5 mg/dL (8.4-10.2); CREATININE SERUM 0.8 mg/dL (0.6-1.4); GLOM FILT RATE Estimated 76.4 mL/min (>60)
[2016-10-19 06:06] LABS: INR 1.8; PARTIAL THROMBOPLASTIN TIME 64.8 SECONDS (23.5-31.3)
[2016-10-19 06:10] LABS: PROTHROMBIN TIME (PATIENT) 19.6 SECONDS (10.0-11.7)
[2016-10-19 06:21] LABS: DIFF IND NO
[2016-10-20 05:33] LABS: BASOPHIL# 0.1 X10e3 (0-0.3); EOSINOPHIL# 0.3 X10e3 (0-0.7); HEMATOCRIT 32.3 % (35.0-45.0); HEMOGLOBIN 10.6 gm/dL (12.0-16.0); INR 3.1; LYMPHOCYTE# 4.1 X10e3 (1.0-3.5); LYMPHOCYTE% 42.2 % (17.0-45.0); MEAN CELL VOLUME 99.7 FL (83-96); MEAN CORPUSCULAR HEMOGLOBIN 32.8 PG (28-34); MEAN CORPUSCULAR HGB CONC 32.9 g/dL (30-36); MEAN PLATELET VOLUME 10.7 FL (6.5-11.5); MONOCYTE# 1.4 X10e3 (0-1.0); NEUTROPHIL# 3.8 X10e3 (1.5-7.1); NEUTROPHIL% 38.8 % (40-75); PLATELET COUNT 184 X10e3 (140-420); RED BLOOD COUNT 3.24 X10e (3.90-5.30); RED CELL DISTRIBUTION WIDTH 13.3 % (11.0-15.5); WHITE BLOOD COUNT 9.7 X10e3 (4.0-10.5)
[2016-10-20 05:35] LABS: PROTHROMBIN TIME (PATIENT) 34.2 SECONDS (10.0-11.7)
[2016-10-20 05:36] LABS: DIFF IND NO
[2016-10-21 02:15] LABS: BASOPHIL# 0.1 X10e3 (0-0.3); BASOPHIL% 0.9 % (0-2.5); EOSINOPHIL# 0.3 X10e3 (0-0.7); HEMATOCRIT 31.9 % (35.0-45.0); HEMOGLOBIN 10.5 gm/dL (12.0-16.0); LYMPHOCYTE# 3.3 X10e3 (1.0-3.5); LYMPHOCYTE% 36.9 % (17.0-45.0); MEAN CELL VOLUME 100.5 FL (83-96); MEAN CORPUSCULAR HGB CONC 32.9 g/dL (30-36); MEAN PLATELET VOLUME 10.2 FL (6.5-11.5); MONOCYTE# 1.3 X10e3 (0-1.0); MONOCYTE% 15.1 % (3.0-12.0); NEUTROPHIL# 3.9 X10e3 (1.5-7.1); NEUTROPHIL% 44.1 % (40-75); PLATELET COUNT 188 X10e3 (140-420); RED BLOOD COUNT 3.17 X10e (3.90-5.30); WHITE BLOOD COUNT 8.8 X10e3 (4.0-10.5)
[2016-10-21 02:16] LABS: DIFF IND NO
[2016-10-21 02:27] LABS: INR 3.1; PROTHROMBIN TIME (PATIENT) 33.3 SECONDS (10.0-11.7)
[2016-10-21] MEDS ORDERED: PRO-AMATINE5 M1 PO (13:38)
== END 2016-10-21 15:00 | disposition home or self-care (01) | DRG 378 ==
LOC: CED 10:50 → C3A PCU 14:10 → CEDOF 14:10 → CED 14:54 → C3A PCU 14:54 → CEDOF 14:54 → C3A PCU 16:40 → CEDOF 16:40 → C3A PCU 10-17 09:35 → C2A 10-18 03:56 → CICCU2 10-18 03:59 → C4C 10-20 21:27
PROVIDERS: Emergency Medicine; Family Medicine; Hospitalist; Internal Medicine; Internal Medicine Cardiovascular Disease; Physician Assistant Medical
PROC: 0DJD8ZZ Inspection of Lower Intestinal Tract, Via Natural or Artificial Opening Endoscopic (ICD-10-PCS; principal; 2016-10-15 08:00)
PROC: B24BZZZ Ultrasonography of Heart with Aorta (ICD-10-PCS; 2016-10-20)
DX: K57.31 Diverticulosis of large intestine without perforation or abscess with bleeding (principal); D62 Acute posthemorrhagic anemia; I11.0 Hypertensive heart disease with heart failure; I42.9 Cardiomyopathy, unspecified; I95.9 Hypotension, unspecified; I50.22 Chronic systolic (congestive) heart failure; E44.1 Mild protein-calorie malnutrition; Z68.1 Body mass index [BMI] 19.9 or less, adult; Z87.891 Personal history of nicotine dependence; R00.1 Bradycardia, unspecified; I25.2 Old myocardial infarction; M19.90 Unspecified osteoarthritis, unspecified site; J44.9 Chronic obstructive pulmonary disease, unspecified; K64.8 Other hemorrhoids; E78.5 Hyperlipidemia, unspecified; I25.10 Atherosclerotic heart disease of native coronary artery without angina pectoris; Z95.2 Presence of prosthetic heart valve; Z79.01 Long term (current) use of anticoagulants; Z95.1 Presence of aortocoronary bypass graft; Z95.5 Presence of coronary angioplasty implant and graft; Z90.710 Acquired absence of both cervix and uterus; Z88.0 Allergy status to penicillin; Z88.1 Allergy status to other antibiotic agents; Z88.5 Allergy status to narcotic agent; Z88.8 Allergy status to other drugs, medicaments and biological substances
CPT/HCPCS: 36415; 70450; 74177; 80048; 80053; 80076; 82550; 83735; 84484; 85014; 85018; 85025; 85027; 85610; 85730; 86850; 86900; 86901; 93005; 93306; 96361; 96374; 96375; 97161; 97166; 99285; C9113; G8978-GP; G8979-GP; G8980-GP; G8987-GO; G8988-GO; G8989-GO; J1644; J1885; J2270; J2405; J3370; Q9967